=== PATIENT | female | born 1985 | race American Indian/Alaskan Native ===

== ENCOUNTER 2021-07-09 10:31 | Outpatient (CLI) | payer BC ==
[2021-07-09 11:33] LABS: Basophils % (Auto) 0.6 % (0.0-1.8); Eosinophils # (Auto) 0.2 K/mm3 (0.0-0.4); Hematocrit 43.9 % (30.3-42.9); Hemoglobin 14.1 gm/dl (10.1-14.3); Lymphocytes # (Auto) 2.8 K/mm3 (1.2-5.4); Lymphocytes % (Auto) 43.4 % (13.4-35.0); Mean Corpuscular HGB Conc 32 % (30-34); Mean Corpuscular Volume 89 fl (79-97); Monocytes # (Auto) 0.7 K/mm3 (0.0-0.8); Platelet Count 294 K/mm3 (140-440); Red Blood Count 4.92 M/mm3 (3.65-5.03); Red Cell Distribution Width 12.9 % (13.2-15.2)
[2021-07-09 11:37] LABS: Bacteria,Urine 2+ /HPF (Negative); Bilirubin,Urine NEG (Negative); Blood,Urine NEG (Negative); Color,Urine Straw (Yellow); Protein,Urine <15 mg/dL mg/dL (Negative); Urobilinogen,Urine < 2.0 mg/dL (<2.0)
[2021-07-09 11:55] LABS: Alanine Aminotransferase 16 units/L (7-56); Albumin 4.9 g/dL (3.9-5); BUN/Creatinine Ratio 20; Blood Urea Nitrogen 16 mg/dL (7-17); Calcium 10.3 mg/dL (8.4-10.2); Chol/HDL Ratio 2.61 %; HDL Cholesterol 65 mg/dL (40-59); Hemolysis Index 5; LDL Cholesterol,Direct 102 mg/dL (50-130)
[2021-07-09 18:49] LABS: Hepatitis C Virus Antibody Non-Reactive (NonReactive)
[2021-07-09 21:54] LABS: Hepatitis B Surface Antigen Nonreactive (Negative)
== END 2021-07-09 10:32 | disposition home or self-care (01) ==
LOC: LAB 10:31
PROVIDERS: ATTEND Internal Medicine
DX: Z00.00 Encounter for general adult medical examination without abnormal findings (principal); Z13.220 Encounter for screening for lipoid disorders; Z13.29 Encounter for screening for other suspected endocrine disorder; Z13.1 Encounter for screening for diabetes mellitus; E55.9 Vitamin D deficiency, unspecified; R94.6 Abnormal results of thyroid function studies
CPT/HCPCS: 36415; 80053; 80061; 80074; 81001; 82306; 83036; 84439; 84443; 85025

== ENCOUNTER 2021-08-28 07:53 | Outpatient (CLI) | payer BC ==
--- NOTE | 2021-08-28 09:53 | Cat Scan Report ---
CT OF THE ABDOMEN AND PELVIS WITH INTRAVENOUS CONTRAST INDICATION / CLINICAL INFORMATION: R19.07 ABDOMINAL SWELLING AND PAIN/MASS/LUMP. TECHNIQUE: The patient received 100 cc Omnipaque [address] scans at this location are performed using CT dose reduction for ALARA by means of automated exposure control. COMPARISON: None available. FINDINGS: ABDOMEN: The liver, spleen, gallbladder, bile ducts, pancreas, adrenal glands and kidneys demonstrate no significant abnormality. There is a moderate amount of stool in the colon. I see no evidence of b owel obstruction, wall thickening or free air. No adenopathy is present. No acute vascular abnormalit y is seen. The lung bases are clear. PELVIS: The distal ureters and urinary bladder are normal. The uterus measures approximately 10.5 cm in length. There is a 1 cm subserosal fibroid in the anterior uterine body. There is a 2.9 cm simple cyst in the right ovary. No abnormality is seen in the left adnexa. No free fluid is noted. A normal appendix is present. There is no evidence of diverticulitis. I do not identify a hernia. No acute osseous abnormality is seen. IMPRESSION: 1. No acute intra-abdominal disease is identified. 2. 2.9 cm simple right ovarian cyst is probably physiologic. Small uterine fibroid. Signer Name: Mj Smith MD Signed: 08/28/2021 9:49 AM Workstation Name: [id number]
== END 2021-08-28 07:54 | disposition home or self-care (01) ==
LOC: CT 07:53
PROVIDERS: ATTEND Internal Medicine
DX: D25.9 Leiomyoma of uterus, unspecified (principal); R19.07 Generalized intra-abdominal and pelvic swelling, mass and lump; N83.201 Unspecified ovarian cyst, right side
CPT/HCPCS: 74177; Q9967

== ENCOUNTER 2021-08-31 09:44 | Outpatient (CLI) | payer BC | END 2021-08-31 09:45 | disposition home or self-care (01) | LOC: LABHHL 09:44 | PROVIDERS: ATTEND Surgery | DX: D22.9 Melanocytic nevi, unspecified (principal) | CPT/HCPCS: 88304 ==

== ENCOUNTER 2021-12-25 13:14 | Outpatient (CLI) | payer BC | END 2021-12-25 13:15 | disposition home or self-care (01) | LOC: LAB 13:14 | PROVIDERS: ATTEND Obstetrics & Gynecology | DX: Z11.3 Encounter for screening for infections with a predominantly sexual mode of transmission (principal) | CPT/HCPCS: 36415; 86592; 86689; 86706; 86803 ==

== ENCOUNTER 2021-12-25 16:35 | Outpatient (CLI) | payer BC ==
[2021-12-25 16:59] LABS: Basophils % (Auto) 0.6 % (0.0-1.8); Eosinophils # (Auto) 0.1 K/mm3 (0.0-0.4); Eosinophils % (Auto) 1.4 % (0.0-4.3); Hematocrit 36.6 % (30.3-42.9); Hemoglobin 12.4 gm/dl (10.1-14.3); Lymphocytes # (Auto) 2.7 K/mm3 (1.2-5.4); Mean Corpuscular HGB Conc 34 % (30-34); Mean Corpuscular Volume 88 fl (79-97); Monocytes # (Auto) 0.5 K/mm3 (0.0-0.8); Platelet Count 227 K/mm3 (140-440); Red Blood Count 4.17 M/mm3 (3.65-5.03); Red Cell Distribution Width 13.5 % (13.2-15.2)
== END 2021-12-25 16:36 | disposition home or self-care (01) ==
LOC: LABHHL 16:35
PROVIDERS: ATTEND Internal Medicine
DX: D64.9 Anemia, unspecified (principal)
CPT/HCPCS: 36415; 82728; 83540; 85025

== ENCOUNTER 2021-12-26 07:38 | Outpatient (CLI) | payer BC ==
--- NOTE | 2021-12-26 09:58 | Ultrasound Report ---
PELVIC ULTRASOUND INDICATION: PELVIC PAIN R10.2 , dysfunctional uterine bleeding, history of right ovarian cyst, histor y of uterine leiomyomata COMPARISON: CT abdomen and pelvis 08/28/2021 TECHNIQUE: Transabdominal FINDINGS: Uterus: Measures 11.2 x 5.5 x 6.6 cm. Endometrial stripe measures 10 mm. No fluid is seen within the endometrial canal. Tiny anterior fundal subserosal leiomyoma measuring only 12 mm. Right ovary: Measures 2.9 cm in length and shows no abnormalities. No adnexal cysts are seen. The cys t seen on CT in August has resolved. Blood flow noted in the right ovary. Left ovary: Measures 5.9 cm in length and shows a 3.4 cm simple cyst, likely physiologic. Blood flow is noted in the ovary. Free fluid: Minimal IMPRESSION: 1. Minimal uterine leiomyoma 2. Previous right ovarian cyst resolved 3. Left ovarian cyst, probably physiologic Signer Name: Aubrey Dwyer MD Signed: 12/26/2021 9:53 AM Workstation Name: [id number]
== END 2021-12-26 07:39 | disposition home or self-care (01) ==
LOC: US 07:38
PROVIDERS: ATTEND Obstetrics & Gynecology
DX: D25.9 Leiomyoma of uterus, unspecified (principal); N83.292 Other ovarian cyst, left side
CPT/HCPCS: 76856

== ENCOUNTER 2021-12-28 07:49 | Outpatient (CLI) | payer BC ==
--- NOTE | 2021-12-28 10:07 | Ultrasound Report ---
ULTRASOUND THYROID INDICATION / CLINICAL INFORMATION: R94.6 ABNORMAL RESULTS OF THYROID FUNCTION STUDIES. COMPARISON: None available. FINDINGS: RIGHT LOBE: Size = 5.8 cm. LEFT LOBE: Size = 5.5 cm. ISTHMUS: Thickness = 0.6 cm. APPEARANCE: Normal. SMALL NODULES < 1 cm: Within the isthmus, there is a 7 mm hypoechoic nodule with a punctate echogenic focus. This is most likely a colloid cyst/nodule. NODULES >= 1 cm or with SUSPICIOUS FEATURES: None. LYMPH NODES: No abnormal lymph nodes. PARATHYROID GLANDS: No abnormal parathyroid glands. ADDITIONAL FINDINGS: None. IMPRESSION: 1. The thyroid is mildly enlarged, measurements as above. 2. Incidental subcentimeter lesion in the isthmus. ACR TI-RADS Thyroid Nodule Recommendations TI-RADS 1 (0 pts) -- Benign. No Fine Needle Aspirate biopsy (FNA) or follow-up. TI-RADS 2 (1-2 pts) -- Not Suspicious. No FNA or follow-up. TI-RADS 3 (3 pts) -- Mildly Suspicious. If >2.5 cm: FNA. If >1.5 cm: Follow up at 1, 3, 5 years. TI-RADS 4 (4-6 pts) -- Moderately Suspicious. If >1.5 cm: FNA. If >1 cm: Follow up at 1, 2, 3, 5 year s. TI-RADS 5 (7+ pts) -- Highly Suspicious. If >1 cm: FNA. If > 0.5 cm: Follow annually for 5 years. REFERENCE: ACR Thyroid Imaging, Reporting and Data System (TI-RADS): White Paper of the ACR TI-RADS C ommittee. J AM Gilbert Radiol 2017;14:587-595. NOTE: Nodules < 1 cm do not typically require follow-up or FNA unless there are suspicious features. NOTE: Nodule size maximum dimension determines whether a given lesion should be biopsied or followed. NOTE: If multiple nodules meet criteria for FNA, only the two (2) most suspicious nodules should be b iopsied. In addition, FNA of any suspicious cervical nodes should be biopsied. NOTE: Predominantly Cystic nodules and Spongiform nodules, composed predominantly (>50%) of small cys tic spaces, are considered benign (TI-RADS 1) regardless of other criteria. Signer Name: Main Barrow MD Signed: 12/28/2021 10:02 AM Workstation Name: [id number]
== END 2021-12-28 07:50 | disposition home or self-care (01) ==
LOC: US 07:49
PROVIDERS: ATTEND Internal Medicine
DX: E04.1 Nontoxic single thyroid nodule (principal); E04.9 Nontoxic goiter, unspecified
CPT/HCPCS: 76536

== ENCOUNTER 2022-01-14 12:27 | Outpatient (CLI) | payer OTHER, BC | END 2022-01-14 12:28 | disposition home or self-care (01) | LOC: LAB 12:27 | PROVIDERS: ATTEND Obstetrics & Gynecology | DX: Z11.3 Encounter for screening for infections with a predominantly sexual mode of transmission (principal) | CPT/HCPCS: 36415; 86689; 86695 ==

== ENCOUNTER 2022-02-07 05:34 | Day surgery (SDC) | payer BC, OTHER ==
[2022-02-04 10:59] LABS: Basophils % (Auto) 0.6 % (0.0-1.8); Eosinophils # (Auto) 0.1 K/mm3 (0.0-0.4); Eosinophils % (Auto) 2.3 % (0.0-4.3); Hematocrit 35.4 % (30.3-42.9); Hemoglobin 12.1 gm/dl (10.1-14.3); Lymphocytes # (Auto) 2.1 K/mm3 (1.2-5.4); Lymphocytes % (Auto) 39.8 % (13.4-35.0); Mean Corpuscular HGB Conc 34 % (30-34); Mean Corpuscular Volume 87 fl (79-97); Monocytes # (Auto) 0.4 K/mm3 (0.0-0.8); Monocytes % (Auto) 7.2 % (0.0-7.3); Platelet Count 237 K/mm3 (140-440); Red Blood Count 4.06 M/mm3 (3.65-5.03)
[2022-02-04 11:17] LABS: BUN/Creatinine Ratio 8; Blood Urea Nitrogen 7 mg/dL (7-17); Calcium 9.2 mg/dL (8.4-10.2); Hemolysis Index 0
--- NOTE | 2022-02-04 11:56 | Anesthesia Consultation ---
Anesthesia Consult and Med Hx Date of service: 02/07/22 - Airway Anesthetic Teeth Evaluation: Good ROM Head & Neck: Adequate Mental/Hyoid Distance: Adequate Mallampati Class: Class II Intubation Access Assessment: Good - Pulmonary Exam CTA: Yes - Cardiac Exam Cardiac Exam: No Murmur - Pre-Operative Health Status ASA Pre-Surgery Classification: ASA2 Proposed Anesthetic Plan: General Nerve Block: TAP - Pulmonary Hx Smoking: No - Cardiovascular System Hx Heart Murmur: Yes - Central Nervous System Hx Psychiatric Problems: Yes (PTSD) - Other Systems Hx Cancer: No - Additional Comments Anesthesia Medical History Comments: ptsd
--- NOTE | 2022-02-06 21:32 | History and Physical Report ---
History of Present Illness Date of examination: 02/04/22 Date of admission: 02/07/2022 Chief complaint: Here for surgery History of present illness: Patient presents for hysterectomy. Notes a longstanding history of heavy irregular periods since 2014. Recently has gotten worse. Notes she will have months where she has no menses, and others where she will have two cycles. Previously had three day cycles with one day of heavy bleeding and cramping and gradually declined to spotting on day 3. Patient also complains of pelvic pain described as a continuous pressure along with intermittent sharp shooting pain radiating down to her pelvis. No longer sexually active due to the bleeding and pain. Previously tried Depo Provera in the past and notes it helped, but caused significant weight gain. Patient states she is tired of bleeding and desires definitive management with hysterectomy. Past History Past Medical History: no pertinent history, other (heart murmur) Past Surgical History: no surgical history [employer] History: abnormal PAP smear, trichomonas Family/Genetic History: none Social history: no significant social history - Obstetrical History : 2 Hx # Term Pregnancies: 2 Number of Pregnancies: 0 Spontaneous Abortions: 0 Induced : 0 Number of Living Children: 3 Medications and Allergies Allergies Allergy/AdvReac Type Severity Reaction Status Date / Time latex Allergy Rash, Verified 01/28/22 17:09 swelling Home Medications Medication Instructions Recorded Confirmed Last Taken Type hydrOXYzine HCL [Atarax] 25 mg PO HS 01/28/22 01/28/22 Unknown History Active Meds: Active Medications Celecoxib (Celecoxib 200 Mg Cap) 200 mg PO PREOP NR Stop: 02/07/22 11:00 Gabapentin (Gabapentin 300 Mg Cap) 300 mg PO PREOP NR Stop: 02/07/22 12:00 Lactated Ringer's (Lactated Ringers) 1,000 mls @ 100 mls/hr IV DIRECT ZOË Midazolam HCl (Midazolam 2 Mg/2 Ml Inj) 2 mg IV PREOP NR Stop: 02/07/22 23:59 Scopolamine (Scopolamine Transdermal Patch 72 Hr) 1 each TD PREOP NR Stop: 02/07/22 23:59 Review of Systems All systems: negative Genitourinary: vaginal bleeding (menorrhagia, dysmenorrhea), pelvic pain - Vital Signs Vital signs: Vital Signs Temp Pulse Resp BP Pulse Ox 98.8 F 67 20 113/74 96 02/04/22 10:40 02/04/22 10:40 02/04/22 10:40 02/04/22 10:40 02/04/22 10:40 Temp Pulse Resp BP Pulse Ox 98.8 F 67 20 113/74 96 02/04/22 10:40 02/04/22 10:40 02/04/22 10:40 02/04/22 10:40 02/04/22 10:40 - Physical Exam Abdomen: Positive: normal appearance, soft, normal bowel sounds. Negative: distention, tenderness Genitourinary (Female): Positive: normal external genitalia Vagina: Positive: normal moisture. Negative: discharge Cervix: Negative: lesion, discharge Uterus: Positive: normal size, normal contour Adnexa: both: normal Results Result Diagrams: 02/04/22 10:45 02/04/22 06:00 All other labs normal. Assessment and Plan Patient desires definitive management. To OR for TLH-BS, cysto and all other indicated procedures Risks of procedure reviewed including pain, bleeding, infection, damage to surrounding tissues and structures, need for further procedures Alternatives reviewed Procedure and blood consents done Ancef 2g preop abx To OR as scheduled on 02/07 - Patient Problems (1) Menorrhagia Status: Acute (2) Dysmenorrhea Status: Acute (3) Pelvic pain Status: Acute
[~2022-02-07 05:34] MED LIST: BUPIVACAINE/PF (0.5%) 5 MG/1 ML 10 ML VIAL INFILTRATI NR; LIDOCAINE (1%) 10 MG/1 ML VIAL 20 ML MDV INFILTRATI NR; SODIUM CHLORIDE 0.9% P/F 10 ML VIAL INFILTRATI NR; ceFAZolin/Water 2 GM/20 ML 2 GM/20 ML SYRINGE IV NR; fentaNYL 100 MCG/2 ML INJ IV NR
[2022-02-07] MEDS ORDERED: CELECOXIB 200 MG CAP PO NR (07:00)
[2022-02-07] MEDS ORDERED: LACTATED RINGERS 1,000 ML IV SCH (07:00)
[2022-02-07] MEDS ORDERED: MIDAZOLAM 2 MG/2 ML INJ IV NR ×3 (07:00→12:00)
[2022-02-07] MEDS ORDERED: GABAPENTIN 300 MG CAP PO NR (07:00)
[2022-02-07] MEDS ORDERED: SCOPOLAMINE TRANSDERMAL PATCH 72 HR TD NR (07:00)
[2022-02-07] MEDS ORDERED: LIDOCAINE MPF (2%) 20 MG/1 ML VIAL 5 ML ONE (07:13)
[2022-02-07] MEDS ORDERED: KETOROLAC 30 MG/1 ML INJ ONE (07:13)
[2022-02-07] MEDS ORDERED: ROCURONIUM 50 MG/5 ML INJ IV ONE ×2 (07:13→09:08)
[2022-02-07] MEDS ORDERED: ONDANSETRON 4 MG/2 ML INJ ONE (07:13)
[2022-02-07] MEDS ORDERED: KETAMINE/STERILE WATER 50 MG/ML SYRINGE ONE (07:14)
[2022-02-07] MEDS ORDERED: propofoL 200 MG/20 ML VIAL IV ONE (07:14)
[2022-02-07] MEDS ORDERED: dexAMETHasone 4 MG/ML VIAL ONE (07:30)
[2022-02-07] MEDS ORDERED: BUPIVACAINE-EPINEPHRINE/PF 0.25%-1:200,000 (30 ML) VIAL INFILTRATI ONE (07:30)
--- NOTE | 2022-02-07 07:32 | Anesthesia Day of Surgery ---
Anesthesia Day of Surgery - Day of Surgery Patient Examined: Yes Patient H&P Reviewed: Yes Patient is NPO: Yes
[2022-02-07] MEDS ORDERED: fentaNYL 100 MCG/2 ML INJ ONE (07:33)
[2022-02-07] MEDS ORDERED: BUPIVACAINE/PF (0.5%) 5 MG/1 ML 30 ML VIAL INFILTRATI ONE (08:10)
[2022-02-07] MEDS ORDERED: ANTICOAGULANT SOD CITRATE SOLUTION MC ONE ×2 (08:20→11:30)
[2022-02-07] MEDS ORDERED: ePHEDrine SULFATE 50 MG/1 ML INJ ONE (09:16)
[2022-02-07] MEDS ORDERED: NEOSTIGMINE 10MG/10 ML INJ MDV ONE (10:11)
[2022-02-07] MEDS ORDERED: GLYCOPYRROLATE 0.4 MG/2 ML INJ ONE (10:11)
[2022-02-07] MEDS ORDERED: SODIUM CHLORIDE P/F VIAL 10 ML 10 ML ONE (11:09)
[2022-02-07] MEDS ORDERED: METHYLENE BLUE 50 MG/10 ML AMP ONE (11:15)
[2022-02-07] MEDS ORDERED: SODIUM CHLORIDE 0.9% IRRIG SOLN 2000 ML IR ONE (11:30)
[2022-02-07] MEDS ORDERED: LACTATED RINGERS 1,000 ML ONE ×2 (11:46)
--- NOTE | 2022-02-07 12:18 | Operative Report ---
Operative Report Operative Report: Date of Procedure: February 07, 2022 Preoperative Diagnosis: Menorrhagia, dysmenorrhea, fibroid uterus, pelvic pain Postoperative Diagnosis: Same Procedure Total Haparoscopic Hysterectomy, bilateral salpingectomy, cystoscopy Surgeon: Evie Walker MD [employer] Teacher: Chris Lopez MD Findings: EUAnormal external female genitalia; 12-week size uterus Laparoscopyuterus with small fundal fibroid noted; bilateral tubes and ovaries normal in appearance Anesthesia: GETA Estimated Blood Loss: 100 mL IV Fluids: 2000 mL Urine Output: 350 mL Specimen: Uterus, cervix, bilateral fallopian tubes Complications: None Technique: Patient brought to the operating room and identified as Susanne Mathew. Ancef 2 g was given. Under general anesthesia, the patient was placed in dorsal lithotomy position and prepped and draped and prepped and draped in a sterile fashion. Joy catheter inserted without difficulty. Speculum was placed into the vagina and uterus sounded to 11 cm. The AnSyn-care uterine manipulator placed without difficulty. Attention was then turned to the abdomen. The Veress needle was inserted into the umbilicus and the abdomen insufflated with CO2 gas. A 12 mm trocar was was placed supraumbilically under direct visualization. The Veress needle was removed. CO2 gas was attached to the 12 mm trocar and the abdomen was insufflated. Three additional accessory ports were placed using 5 mm tract trocars, with 2 trocars placed on the left lower quadrant and one trocar placed on the right lower quadrant. The peritoneal cavity was was inspected and the above findings noted. The patietn was the placed in steep Trendelenburg. Attention was then turned to the left adnexa. The left fallopian tube was grasped and serially cut and coagulated using the LigaSure device. Attention was then turned to the left round ligament which was ligated and the broad ligament entered. The anterior leaf of the broad ligament was dissected and the bladder flap created on the left side. Attention was then turned to the utero-ovarian ligament which was serially cut and coagulated. The left uterine vessels were then skeletonized, serially coagulated and cut. Attention was then turned to the right side which was treated in a similar fashion with the fallopian tube being ligated, the uterine ovarian ligament being ligated, and the anterior leaf of the broad ligament entered after ligation of the round ligament. The posterior leaf of the broad ligament was then dissected. The right uterine artery was skeletonized and serially cut and coagulated. The monopolar L-hook was then used to make the colpotomy incision along the cup of the Vcare. Additional vessels noted and serially ligated using the LigaSure device. After completion of the colpotomy the uterus was removed vaginally. All pedicles were noted to be hemostatic. Attention was then turned to the vagina. The vaginal cuff was grasped with Allis clamps at at corners. The cuff was then closed with interrupted sutures of 0 Vicryl. Cuff intact and hemostasis noted. At this time the decision was made to proceed with cystoscopy. The Joy catheter was removed. A 30 degree history cystoscope was inserted into the bladder. Bilateral ureteral jets were noted and no injuries to the bladder were seen. The cystoscope was removed. Attention was then returned to the abdomen. The pelvis was inspected and noted to be hemostatic. All trocars and instruments were removed. The fascia at the 12 mm trocar site was grasped with Allis clamps and closed using 0 Vicryl with a UR 6 needle. All trocar sites were then closed using 4-0 Monocryl. Dermabond was placed over all incisions. All instruments removed and patient tolerated procedure well
[2022-02-07] MEDS ORDERED: ONDANSETRON 4 MG/2 ML INJ IV PRN (13:02)
[2022-02-07] MEDS ORDERED: HYDROmorphone 0.5 MG/0.5 ML INJ IV PRN ×2 (13:02)
--- NOTE | 2022-02-07 13:19 | Post Anesthesia Evaluation ---
- Post Anesthesia Evaluation Patient Participated: Yes Airway Patent: Yes Stable Respiratory Function: Yes Nausea/Vomiting: No Temp > 96.8F: Yes Pain Manageable: Yes Adequeate Hydration: Yes Anesthesia Complications: No
--- NOTE | 2022-02-07 14:47 | Short Stay Summary ---
Short Stay Documentation Date of service: 02/07/22 Narrative H&P: Patient with h/o menorrhagia, dysmenorrhea, uterine fibroid, and pelvic pain presents for TLH-BS and cystoscopy. No complaints today. Desires to prceed with hysterectomy for definitive management. - History Principal diagnosis: menorrhagia, dysmenorrhea, uterine fibroid, pelvic pain H&P: obtained from office Past Medical History: other (heart murmur) Past Surgical History: No surgical history Social history: no significant social history - Allergies and Medications Current Medications: Allergies latex Allergy (Verified 01/28/22 17:09) Rash, swelling codeine Adverse Reaction (Verified 02/07/22 07:24) Nausea Home Medications Medication Instructions Recorded Confirmed Last Taken Type hydrOXYzine HCL [Atarax] 25 mg PO HS 01/28/22 02/07/22 02/06/22 20:00 History Docusate Sodium [Colace] 100 mg PO BID #60 capsule 02/07/22 Unknown Rx Ibuprofen [Motrin 800 MG tab] 800 mg PO Q8HR #30 tablet 02/07/22 Unknown Rx oxyCODONE /ACETAMINOPHEN [Percocet 1 tab PO Q6HR PRN #20 tablet 02/07/22 Unknown Rx 5/325] Active Medications Hydromorphone HCl (Hydromorphone 0.5 Mg/0.5 Ml Inj) 0.25 mg IV Q10MIN PRN PRN Reason: Pain, Moderate (4-6) Hydromorphone HCl (Hydromorphone 0.5 Mg/0.5 Ml Inj) 0.5 mg IV Q10MIN PRN PRN Reason: Pain , Severe (7-10) Last Admin: 02/07/22 13:05 Dose: 0.5 mg Lactated Ringer's (Lactated Ringers) 1,000 mls @ 100 mls/hr IV DIRECT ZOË Last Admin: 02/07/22 07:09 Dose: 100 mls/hr Cefazolin Sodium (Ancef/Sterile Water 2 Gm/20 Ml) 2 gm in 20 mls @ 80 mls/hr IV PREOP NR; Protocol Stop: 02/07/22 21:59 Midazolam HCl (Midazolam 2 Mg/2 Ml Inj) 2 mg IV PREOP NR Stop: 02/07/22 23:59 Midazolam HCl (Midazolam 2 Mg/2 Ml Inj) 2 mg IV PREOP NR Stop: 02/07/22 23:59 Ondansetron HCl (Ondansetron 4 Mg/2 Ml Inj) 4 mg IV ONCE PRN PRN Reason: Nausea And Vomiting Scopolamine (Scopolamine Transdermal Patch 72 Hr) 1 each TD PREOP NR Stop: 02/07/22 23:59 Last Admin: 02/07/22 06:50 Dose: 1 each - Physical exam General appearance: no acute distress Gastrointestinal: normal Female Genitourinary: normal Extremities: no ischemia, No edema - Hospital course Hospital course: To OR for TLH-BS and cysto. See operative report for additional details. Patient tolerated procedure well. Stable for discharge on POD #0. - Disposition Condition at discharge: Good Disposition: 01 HOME / SELF CARE / HOMELESS - Discharge Diagnoses (1) Menorrhagia Status: Acute (2) Dysmenorrhea Status: Acute (3) Pelvic pain Status: Acute (4) Fibroid, uterine Status: Acute Short Stay Discharge Plan Activity: advance as tolerated, other (pelvic rest. No sex and nothing in the vagina for 6 weeks. ) Diet: regular Wound: keep clean and dry Additional Instructions: REMOVE SCOPOLAMINE PATCH BEHIND LEFT EAR IN 24-72 HOURS-USE GLOVES AND WASH HANDS. WOUND:OPEN TO AIR. DO NOT RUB OR SCRUB OR INCISION SITE. PAT DRY. NOTHING PER VAGINA, NO SEX, NO DOUCHE NO TAMPONS, NO BATH.MAY SHOWER AND WASH HAIR,.USE SANITARY PADS. Follow up with: HAI ESCALANTE MD [Staff Physician] - 7 Days Forms: Outpatient Surgery DC Inst. Prescriptions: Docusate Sodium [Colace] 100 mg PO BID #60 capsule Ibuprofen [Motrin 800 MG tab] 800 mg PO Q8HR #30 tablet oxyCODONE /ACETAMINOPHEN [Percocet 5/325] 1 tab PO Q6HR PRN #20 tablet PRN Reason: Pain
[2022-02-07 15:21] VITALS: BP 110/60
== END 2022-02-07 15:30 | disposition home or self-care (01) ==
LOC: OR 05:34
PROVIDERS: ATTEND Obstetrics & Gynecology
DX: N92.0 Excessive and frequent menstruation with regular cycle (principal); R10.2 Pelvic and perineal pain; N94.6 Dysmenorrhea, unspecified; D25.9 Leiomyoma of uterus, unspecified; G43.909 Migraine, unspecified, not intractable, without status migrainosus; N80.0 Endometriosis of uterus; Z91.041 Radiographic dye allergy status; Z20.822 Contact with and (suspected) exposure to COVID-19; Z88.5 Allergy status to narcotic agent; Z79.899 Other long term (current) drug therapy; Z98.890 Other specified postprocedural states
CPT/HCPCS: 36415; 52000; 58571; 64488; 80048; 84703; 85025; 86850; 86900; 86901; 88307; J0690; J1100; J1170; J1815; J1885; J2250; J2405; J2704; J2710; J3010; J3490; J7120; U0003; 64448; 64450; Q9968